=== PATIENT | female | born 1955 | race Caucasian/White ===

== ENCOUNTER → 2016-11-18 | Outpatient (CLI) | payer BC ==
[~2016-11-18] MED LIST: ISOVUE-370 76% 100ML VIAL (Q9967) As Ordered ONE
--- NOTE | 2016-11-19 03:54 | REP ---
Clinical: Follow-up pulmonary nodule. Comparison: 07/14/2016. Technique: Axial contrast enhanced images from the thoracic inlet to the upper abdomen using 100 ml Isovue 370 intravenous contrast material with coronal and sagittal re-formations. Findings: A 7 mm ill-defined partially solid density in the left upper lobe (images 21 - 22) remains essentially unchanged. Mild biapical scarring along with minimal scattered chronic age-related interstitial changes are again noted and relatively stable. No new pulmonary parenchymal consolidation, nodule or mass lesion identified. No pleural effusion. No pneumothorax. Tracheobronchial tree is patent. No significant axillary, hilar, or mediastinal adenopathy. Atherosclerotic changes to the thoracic aorta and coronary arteries noted without cardiomegaly, pericardial effusion, or aortic aneurysm/dissection. Enlarged thyroid gland with low density nodular components noted. Musculoskeletal structures demonstrate age-related changes without focal osseous abnormality. Impression: 1. 7 mm ill-defined partially solid density in the left upper lobe remains unchanged. Consider 9-12 months follow-up. 2. Nodular heterogeneous mildly enlarged thyroid gland. Signed by Frederic Gallagher MD 11/19/2016 03:47 A
== END ==
LOC: M RAD 12:24
PROVIDERS: ATTEND Emergency Medicine
DX: D38.1 Neoplasm of uncertain behavior of trachea, bronchus and lung (principal); E04.9 Nontoxic goiter, unspecified
CPT/HCPCS: 71260; Q9967

== ENCOUNTER → 2017-07-07 | Outpatient (CLI) | payer BC ==
--- NOTE | 2017-07-10 10:17 | SLEEPHOME ---
DATE OF STUDY: 07/07/2017 ORDERED BY: Amy Graves Diagnostic home sleep testing was performed due to concern for the obstructive sleep apnea syndrome. For testing, a NOX-T3 respiratory monitoring device was used. Continuous record was made of pulse, oxygen saturation, airflow, chest and abdominal strain, and body position. 10 hours and 59 minutes of data were reviewed. There were 7 hours and 43 minutes marked as time in bed. During the interval marked time in bed, there were 199 respiratory events identified of 10 seconds in duration or greater for a respiratory event index of 25.8. The events were primarily obstructive, not exclusive to position. Baseline pulse rate 78 beats per minute. Pulse rate ranged 73 to 88. Baseline saturation was 92%. Lowest oxygen saturation 75%. IMPRESSION: Abnormal home sleep testing with repetitive respiratory events and oxygen desaturation to 75% with a respiratory event index of 25.8 is consistent with the obstructive sleep apnea syndrome. RECOMMENDATION: The patient should be encouraged to undergo formal sleep evaluation and in-laboratory pressure titration.
== END ==
LOC: M SLEEP HO 10:36
PROVIDERS: ATTEND Nurse Practitioner Adult Health
DX: G47.30 Sleep apnea, unspecified (principal)

== ENCOUNTER → 2017-08-12 | Outpatient (CLI) | payer BC ==
[~2017-08-12] MED LIST changes: +ISOVUE-370 76% 100ML VIAL (Q9967) As Ordered; -ISOVUE-370 76% 100ML VIAL (Q9967) As Ordered ONE
== END ==
LOC: M RAD 12:35
DX: D38.1 Neoplasm of uncertain behavior of trachea, bronchus and lung (principal)
CPT/HCPCS: Q9967